=== PATIENT | female | born 1990 | race Caucasian/White ===

== ENCOUNTER 2018-12-27 03:54 | Inpatient (IN) ==
[2018-12-27 02:47] LABS: Amphetamine Screen,Urine Negative ng/mL (Cutoff=1000); Barbiturate Screen,Urine Negative ng/mL (Cutoff=200); Benzodiazepines Screen,Urine Negative ng/mL (Cutoff=200); Cannabinoid Screen,Urine Negative ng/mL (Cutoff = 50); Cocaine Screen,Urine Negative ng/mL (Cutoff= 300); Opiate Screen,Urine Negative ng/mL (Cutoff=300); Phencyclidine Screen,Urine Negative ng/mL (Cutoff=25)
[~2018-12-27 03:54] MED LIST: *HR* Nalbuphine 10 MG/ML AMPUL IVP PRN; Famotidine 20 MG/2 ML VIAL IVP PRN; Metoclopramide 10 MG/2 ML VIAL IVP PRN; Naloxone 0.4 MG/ML INJ IVP PRN; Ondansetron 4 MG/2 ML VIAL IVP PRN; Ringers Solution, Lactated 1,000 ML ONE
[2018-12-27 03:58] LABS: Creatinine,Urine 23 mg/dL; Protein/Creatinine Ratio,Urine 2.83 mg/mg (0.00-0.20)
--- NOTE | 2018-12-27 03:58 | OB/GYN History & Physical ---
Date of Encounter: 12/27/18 Time of Encounter: 03:56 Assessment and Plan (1) 39 weeks gestation of Current visit: Yes Status: Acute admitted for delivery (2) Spontaneous rupture of amniotic membranes Current visit: Yes Status: Acute + Pooling and + Fern test GBS: Negative History of Present Illness Chief complaint: SROM at 39w1d HPI: Ms. Castillo is a 28 year old female is a 28 y/o at 39w1d presents to labor and delivery with complaints of SROM at 0117. Patient reports clear fluid. Denies VB. Patient reports irregular contractions and good movement. Patient denies any complications with current and receives care with Dr. Jerome. Blood type: O+ Rubella: Immune Hep B: Nonreactive GBS: Negative Past Med Surg Social Fam HX - Past Medical History Source: patient Medical history: no medical history Psychiatric history: no psych history - Past Surgical History Surgical History: other Additional surgical history: wisdom teeth extraction - Social History Smoking Status: Never smoker Smokeless Tobacco Status: No Alcohol use: none Drug use: none Current living situation: Home - Independent Activity Level: Independent ambulation Recent Out of Country Travel Within the Last 8 Weeks: No Exposure or Possible Exposure to Illness During Travel: No - Family History Mother Family Member Ethnicity: Non- Living Status: Still Living Hx Family Cardiac Disorders: Yes (HTN) Hx Family Respiratory Disorders: No Hx Family Cancer: No Hx Family GI Disorders: No Hx Family Genitourinary Disorders: No Hx Family Endocrine Disorder: No Hx Family Musculoskeletal Disorders: No Hx Family Neuromuscular Disorders: No Hx Family Neurologic Disorders: Yes (migraines) Hx Family HEENT Disorders: No Hx Family Autoimmune Disorders: No Hx Family Reproductive Disorders: No Hx Family Psychosocial Disorders: No Hx Family Medical Disorders: No Obstetrical History - Pregnancies : 1 Para: 0 Term: 0 : 0 Ab's: 0 Livin Medications and Allergies Ferrous Sulfate [Iron] 325 mg PO BID 11/15/18 [History] Pnv No.95/Ferrous Fum/Folic AC [ Caplet] 1 each PO DAILY 11/15/18 [History] raNITIdine HCl [Zantac] 150 mg PO DAILY 11/15/18 [History] Calcium Carbonate [Tums] 1,000 mg PO Q4HR 12/23/18 [History] Loratadine [Allergy Relief] 10 mg PO DAILY 12/23/18 [History] Allergy/AdvReac Type Severity Reaction Status Date / Time No Known Allergies Allergy Verified 11/15/18 14:55 Review of System OB - Constitutional Constitutional ROS IM: no chills, no fever(s), no headache(s) - Cardiovascular Cardiovascular: no chest pain, no leg edema, no paroxysmal nocturnal dyspnea, no pedal edema, no syncope - Respiratory Respiratory: no cough, no dyspnea - Gastrointestinal Gastrointestinal: no abdominal pain, no constipation, no diarrhea, no heartburn, no nausea, no vomiting - Genitourinary Genitourinary: vaginal discharge (per HPI), no abnormal vaginal bleeding, no difficulty urinating, no dysuria, no flank pain, no urinary frequency, no urinary hesitancy, no urinary urgency, no vaginal odor Exam - Constitutional Constitutional: well developed, well nourished, average body habitus - HEENT HEENT: Normocephaly, Mucus Membranes Moist - Neck Neck exam: full ROM, supple - Lungs Respiratory exam: CTAB - Cardiovascular Cardiovascular exam: RRR, +S1, +S2 - Abdomen Abdomen: Present: bowel sounds normal, gravid, non tender - Extremities Extremities exam: calf tenderness, full ROM, normal inspection Deep Tendon Reflex Grade: 2+ Normal - Cervix Dilation: 4 Effacement: 80 Station: -1 - Uterus Uterus exam: Present: normal size, normal contour - Anus/Rectum Anus/Rectum: Present: normal perianal skin - Comments Comments: Speculum exam: + Pooling & + FERN FHR 135 bpm moderate variability +15x15 accels no decels noted Contractions 2-4 min apart. Cat. 1 tracing Results All other labs normal. - VTE Reasons for not Prescribing Prophylaxis: Treatment not Indicated - Low risk for VTE
[2018-12-27] MEDS ORDERED: Ringers Solution, Lactated 1,000 ML IVC SCH (04:00)
[2018-12-27 04:14] LABS: Alanine Aminotransferase 16 Units/L (7-52); Aspartate Amino Transferase 21 Units/L (13-39); BUN/Creatinine Ratio 15 (6-26); Blood Urea Nitrogen 9 mg/dL (6-20); Lactate Dehydrogenase 156 Units/L (140-271); eGFR For African Americans > 60 (> 60); eGFR For Non-African Americans > 60 (> 60)
[2018-12-27] MEDS ORDERED: Epidural Premix (fent/bupiv) 110 ML EP SCH (04:30)
[2018-12-27 04:35] LABS: Basophils % 0.2 %; Eosinophils # 0.1 K/mcL (0.0-0.6); Hematocrit 36.6 % (35.3-44.9); Hemoglobin 12.3 g/dL (11.5-15.4); Immature Granulocytes % 0.5 % (0-4); Lymphocytes # 2.3 K/mcL (0.6-4.6); Lymphocytes % 16.2 %; Mean Corpuscular HGB Conc 33.6 g/dL (31.6-35.5); Mean Corpuscular Hemoglobin 32.5 pg (28.0-33.3); Mean Corpuscular Volume 96.6 fL (83.0-100.0); Mean Platelet Volume 10.5 fL (9.4-12.4); Monocytes % 7.2 %; Neutrophils # 10.6 K/mcL (1.6-8.9); Platelet Count 245 K/mcL (140-400); Red Blood Count 3.79 M/mcL (3.82-4.97); Red Cell Distribution Width 12.6 % (11.5-14.5); Segmented Neutrophils % 74.9 %; White Blood Count 14.1 K/mcL (4.3-11.1)
--- NOTE | 2018-12-27 05:31 | Anesthesia Evaluation PreOp ---
Date of Encounter: 12/27/18 Time of Encounter: 04:20 - Past History Planned Operation: gaby Cardiac History: Denies any Significant Hx Pulmonary History: Denies Any Significant HX PARACHUTE RIGGER History: Denies Any Significant HX Other Medical History: Denies Any Significant HX Anesthesia History: No Prior Anesthetic Complications : Yes Test: Positive Alcohol Use: none Drug use: none Medications and Allergies Ferrous Sulfate [Iron] 325 mg PO BID 11/15/18 [History] Pnv No.95/Ferrous Fum/Folic AC [ Caplet] 1 each PO DAILY 11/15/18 [History] raNITIdine HCl [Zantac] 150 mg PO DAILY 11/15/18 [History] Calcium Carbonate [Tums] 1,000 mg PO Q4HR 12/23/18 [History] Loratadine [Allergy Relief] 10 mg PO DAILY 12/23/18 [History] Allergy/AdvReac Type Severity Reaction Status Date / Time No Known Allergies Allergy Verified 11/15/18 14:55 - Meds/Allergy Pre-op Review Medications Reviewed: Yes Allergies Reviewed: Yes Beta Blockers on Current Med List: No Anesthesia Results - Labs 12/27/18 03:40 12/27/18 03:40 Anesthesia Exam - HEENT Pupil (Motor): Pupils equal Mallampati: II Teeth: Normal Oral Opening: Greater than 3 - PARACHUTE RIGGER LOC: Oriented PARACHUTE RIGGER Motor: Normal RUE, Normal LUE, Normal RLE, Normal LLE, Normal Face PARACHUTE RIGGER Sensory: Normal: RUE, LUE, RLE, LLE, Face - Cardiac Rhythm: Regular Murmur: None JVD: No Carotid Bruit: No - Pulmonary Breath Sounds: bilateral Clear Respiratory Effort: Symmetrical Anesthesia Assess/Plan ASA Score: 1, 2 Anesthetic Plan: Epidural
--- NOTE | 2018-12-27 05:33 | Anesthesia Procedures ---
Date of Encounter: 12/27/18 Time of Encounter: 04:20 Procedures: Anesthesia - Epidural/Spinal Patient ID/Chart reviewed: Yes Patient examined: Yes OB Eval: Gestational age: 39.1 OB Eval: : 1 OB Eval: Hx Para: 0 OB Eval: Dilated at (cm): 5 OB Eval: Contractions: Non-stressed pattern Consent Obtained: Yes Supplemental Oxygen: None/Room Air Site Prep: Aseptic Technique, Sterile prep and drape Patient position: upright Local Anesthetic: Lidocaine 1% Amount of Local Anesthetic used: 3 Touhy Needle Gauge: 18 Touhy Needle Depth (cm): 6 Catheter Depth at Skin (cm): 8 Test Dose (1.5% Lido + Epi): Volume given (mls): 3 Test Dose Result: Negative Loading Dose: 0.25% Marcaine (mls): 10 Loading Dose Administered: Thru Catheter Infusion Rate (mls/hr): [address]: Tegaderm, Tape Interspace Used: L4-L5 Loss of Resistance (ROSE): Yes Blood: No CSF: No Paresthesia: No Procedure: stable throughout procedure tolerated well. two attempts tolerated well. Vitals + FHT's: stable throughout
[2018-12-27] MEDS ORDERED: Famotidine 20 MG/2 ML VIAL IVP ONE (05:42)
[2018-12-27] MEDS ORDERED: Oxytocin 20 units/ LR 1000 mL 20 UNIT/1,000 ML BAG IVC ONE (07:53)
--- NOTE | 2018-12-27 08:13 | OB Labor Progress Note ---
Date of Encounter: 12/27/18 Time of Encounter: 08:10 Labor Progress Note - Subjective Subjective: Patient comfortable with epidural. She is feeling some pressure with contractions. - Vital Signs Vital Signs: WNL - Cervix Cervix: Complete/+1 - Heart Tones Heart Tones: FHR 145 bpm, moderate variability, +15x15 accels, no decels. - [place]: Q2-4 min - Interventions Interventions: SVE Attempted pushing - Plan Physician notified: Yes Physician notified details: Dr. Bell aware of patient complete SVE Plan: Labor down Change position frequently Anticipate
--- NOTE | 2018-12-27 10:58 | OB/GYN Procedure Note ---
Delivery - Delivery Date: 12/27/18 Provider: Mabel Arguello Intrapartum events: none Delivery induction: none Delivery monitor: external FHT, external uterine Anesthesia: epidural Quantitated Blood Loss: 100 - (s) Infant A Delivery Date: 12/27/18 Delivery Time: 10: Presentation: vertex Position: MAHIN Route of delivery: Gender: Male Viability: Viable at 1 minute: 9 at 5 mins: 10 Shoulder Dystocia: not encountered Specimens collected: cord blood Placenta: spontaneous Cord: 3 umbilical vessels - Repair Episiotomy: none Laceration Description: Periurethral, Perineal - 1st Degree - Complications Delivery complications: none Delivery comments: Called to room for delivery. Under maternal effort, spontaneous delivery of viable female infant over intact perineum. placed on maternal abdomen for drying and stimulation. Cord clamped and cut after pulsation ceased. Small first-degree vaginal laceration noted to be bleeding and was repaired with 3-0 Vicryl. Spontaneous delivery of intact placenta, EBL 100 mL's. No nuchal cord, shoulder dystocia, or meconium encountered. Mother and infant in kangaroo care for 2 hour recovery. - Disposition Mom disposition: stable in LDR disposition: stable in LDR
[2018-12-27] MEDS ORDERED: Acetaminophen 325 MG TABLET PO PRN (13:10)
[2018-12-27] MEDS ORDERED: Oxytocin 20 units/ LR 1000 mL 20 UNIT/1,000 ML BAG IVC SCH (13:10)
[2018-12-27] MEDS ORDERED: Lanolin 7 G OINT...G. TP PRN (13:10)
[2018-12-27] MEDS ORDERED: Measles/Mumps/Rubella Vacc 0.5 ML VIAL SQ PRN (13:10)
[2018-12-27] MEDS ORDERED: Benzocaine/Menthol 56 GM AEROSOL SPRAY TP PRN (13:10)
[2018-12-27] MEDS: Loratadine 10 MG TABLET PO SCH (20:04)
[2018-12-27] MEDS: Ibuprofen 600 MG TABLET PO PRN (21:10)
[2018-12-28] MEDS: Ibuprofen 600 MG TABLET PO PRN (03:32)
[2018-12-28 08:21] VITALS: BP 123/83
[2018-12-28] MEDS: Loratadine 10 MG TABLET PO SCH (08:55)
[2018-12-28] MEDS ORDERED: Prenatal Vit/FA 1 EACH TABLET PO SCH (09:00)
--- NOTE | 2018-12-28 09:09 | Discharge Summary ---
Date of Encounter: 12/28/18 Time of Encounter: 09:03 - Discharge Diagnosis (1) Vaginal delivery Priority: Primary Status: Acute Comments: Stable in PP, pain well managed, bleeding minimal, breast and bottle feeding, desires discharge. - Discharge Medications Prescriptions: New Loratadine [Claritin] 10 mg PO DAILY tablet Acetaminophen [Tylenol] 650 mg PO Q6HR PRN tablet PRN Reason: Mild Pain Ibuprofen [Motrin] 600 mg PO Q6HR PRN #60 tablet PRN Reason: Cramping Benzocaine/Menthol [place] [Dermoplast [place]] 1 appl TP QID PRN aerosol PRN Reason: See Comments Docusate [Colace] 100 mg PO BID #60 capsule Lanolin [Lansinoh] 1 appl TP TID PRN oint...g. PRN Reason: Sore Nipples Continued raNITIdine HCl [Zantac] 150 mg PO DAILY Pnv No.95/Ferrous Fum/Folic AC [ Caplet] 1 each PO DAILY Calcium Carbonate [Tums] 1,000 mg PO Q4HR Loratadine [Allergy Relief] 10 mg PO DAILY Discontinued Ferrous Sulfate [Iron] 325 mg PO BID Home Medications: Pnv No.95/Ferrous Fum/Folic AC [ Caplet] 1 each PO DAILY 11/15/18 [History] raNITIdine HCl [Zantac] 150 mg PO DAILY 11/15/18 [History] Calcium Carbonate [Tums] 1,000 mg PO Q4HR 12/23/18 [History] Loratadine [Allergy Relief] 10 mg PO DAILY 12/23/18 [History] Acetaminophen [Tylenol] 650 mg PO Q6HR PRN tablet 12/28/18 [Rx] Benzocaine/Menthol [place] [Dermoplast [place]] 1 appl TP QID PRN aerosol 12/28/18 [Rx] Docusate [Colace] 100 mg PO BID #60 capsule 12/28/18 [Rx] Ibuprofen [Motrin] 600 mg PO Q6HR PRN #60 tablet 12/28/18 [Rx] Lanolin [Lansinoh] 1 appl TP TID PRN oint...g. 12/28/18 [Rx] Loratadine [Claritin] 10 mg PO DAILY tablet 12/28/18 [Rx] Allergies/Adverse Reactions: Allergy/AdvReac Type Severity Reaction Status Date / Time No Known Allergies Allergy Verified 11/15/18 14:55 Data Procedures and tests throughout hospitalization: Laboratory Tests 12/27/18 12/27/18 12/27/18 02:28 03:40 03:40 WBC 14.1 H RBC 3.79 L Hgb 12.3 Hct 36.6 MCV 96.6 MCH 32.5 MCHC 33.6 RDW 12.6 Plt Count 245 MPV 10.5 Immature Gran % 0.5 Seg Neutrophils % 74.9 Lymphocytes % 16.2 Monocytes % 7.2 Eosinophils % 1.0 Basophils % 0.2 Neutrophils # 10.6 H Lymphocytes # 2.3 Monocytes # 1.0 Eosinophils # 0.1 Basophils # 0.0 BUN 9 Creatinine 0.59 L Est GFR ( Amer) > 60 Est GFR (Non-Af Amer) > 60 BUN/Creatinine Ratio 15 Uric Acid 6.0 AST 21 ALT 16 Lactate Dehydrogenase 156 Urine Creatinine 23 Protein/Creatinin Ratio 2.83 H Urine Total Protein 65 H Urine Opiates Screen Negative Ur Barbiturates Screen Negative Ur Phencyclidine Scrn Negative Ur Amphetamines Screen Negative U Benzodiazepines Scrn Negative Urine Cocaine Screen Negative U Marijuana (THC) Screen Negative Ur Drug Screen Interp See Below Date of admission: 12/27/18 03:54 Primary care physician: PCP NONE Consults: 12/27/18 13:10 Consult to Licensed Master Social Worker [CONS] Routine Comment: Vaginal delivery, consult needed Discharging clinician: Cony Restrepo Anticipated date of discharge: 12/28/18 - Patient Status Disposition: Home, Self-Care Condition: Good Functional capacity at discharge: independent ambulation Overall status at discharge: patient is progressing back to baseline - Discharge Instructions Follow Up With: NONE,PCP [Primary Care Provider] - - Diet and Activity Activity: resume usual activities as tolerated Diet: regular diet Hospital Course Reason for admission: IUP at term Delivery: Episiotomy: none Laceration: 1st degree, other complications: none Discharge diagnosis: IUP at term delivered [place] baby: male Hospital course: Delivery - Delivery Date: 12/27/18 Provider: Mabel Arguello Intrapartum events: none Delivery induction: none Delivery monitor: external FHT, external uterine Anesthesia: epidural Quantitated Blood Loss: 100 - (s) A Delivery Date: 12/27/18 Infant Delivery Time: 10:09 Presentation: vertex Position: MAHIN Route of delivery: Gender: Male Viability: Viable at 1 minute: 9 at 5 mins: 10 Shoulder Dystocia: not encountered Specimens collected: cord blood Placenta: spontaneous Cord: 3 umbilical vessels - Repair Episiotomy: none Laceration Description: Periurethral, Perineal - 1st Degree - Complications Delivery complications: none Delivery comments: Called to room for delivery. Under maternal effort, spontaneous delivery of viable female infant over intact perineum. placed on maternal abdomen for drying and stimulation. Cord clamped and cut after pulsation ceased. Small first-degree vaginal laceration noted to be bleeding and was repaired with 3-0 Vicryl. Spontaneous delivery of intact placenta, EBL 100 mL's. No nuchal cord, shoulder dystocia, or meconium encountered. Mother and in kangaroo care for 2 hour recovery. - Disposition Mom disposition: stable in PP and appropriate for discharge Time Attestation: Total time spent providing and/or coordinating discharge services: Time Spent: Less than 30 minutes Exam - Constitutional Vitals: Temp Pulse Resp BP Pulse Ox 97.9 F 92 14 123/83 98 12/28/18 08:20 12/28/18 08:20 12/28/18 08:31 12/28/18 08:20 12/28/18 08:20 General appearance IM: A&O X 3 - Respiratory Respiratory exam: Present: CTAB - Cardiovascular Cardiovascular exam IM: Present: RRR - GI/Abdominal GI/Abdominal exam IM: normal bowel sounds, soft - Uterine Tone: Firm Uterus Position: At Umbilicus - Extremities Exam Extremities exam IM: Present: normal capillary refill, normal inspection - Neurological Exam Neurological exam: normal gait, oriented X3 - Psychiatric Additional comments: states good mood
== END 2018-12-28 11:07 | disposition home or self-care (01) | DRG 807 ==
LOC: 1NENULAB → 1NENUOBS 12:40
PROVIDERS: ADMIT Advanced Practice Midwife; ATTEND Advanced Practice Midwife